=== PATIENT | male | born 1965 | race Caucasian/White ===

== ENCOUNTER 2016-04-24 16:17 | Emergency (ER) | payer SELFPAY ==
[~2016-04-24] VITALS: Wt 80.0 kg
[2016-04-24 16:36] VITALS: Wt 80.0 kg
[2016-04-24] MEDS ORDERED: METF1000 PO (17:45)
[2016-04-24] MEDS ORDERED: METO-429 PO (17:45)
[2016-04-24] MEDS ORDERED: HYDROmorphONE 1 MG/ML SYG IV STA (18:04)
[2016-04-24] MEDS ORDERED: ONDANSETRON 4 MG INJ IV STA (18:04)
[2016-04-24] MEDS ORDERED: LIDOCAINE/MYLANTA 40 ML BTL PO STA (18:04)
[2016-04-24] MEDS ORDERED: SOD CHLORIDE 0.9% 1,000 ML IV STA (18:04)
[2016-04-24 18:24] LABS: ADD SCAN DIFF NO
[2016-04-24 18:27] LABS: BASOPHILS % 0.4 % (0.0-2.0); EOSINOPHILS # 0.2 10^3/ul (0.0-0.5); EOSINOPHILS % 2.6 % (0.0-7.0); HEMATOCRIT 39.6 % (42.0-52.0); HEMOGLOBIN 13.7 g/dl (14.0-18.0); LYMPHOCYTES % 41.8 % (15.0-51.0); MEAN CORPUSCULAR HEMOGLOBIN 27.8 pg (29.0-33.0); MEAN CORPUSCULAR HGB CONC 34.6 g/dl (32.0-37.0); MEAN CORPUSCULAR VOLUME 80.3 fl (82.0-101.0); MEAN PLATELET VOLUME 10.6 fl (7.4-10.4); MONOCYTE # 0.6 10^3/ul (0.3-0.9); MONOCYTES % 8.3 % (0.0-11.0); NEUTROPHIL # 3.4 10^3/ul (1.6-7.5); NEUTROPHILS % 46.6 % (39.0-77.0); PLATELET COUNT 215 10^3/UL (140-415); RED BLOOD COUNT 4.93 10^6/ul (4.70-6.10); RED CELL DISTRIBUTION WIDTH 12.5 % (11.5-14.5); WHITE BLOOD COUNT 7.2 10^3/ul (4.8-10.8)
[2016-04-24 18:34] LABS: POTASSIUM 4.4 mmol/L (3.5-5.1)
[2016-04-24 18:36] LABS: BILIRUBIN,INDIRECT 0.1 mg/dl (0-1.1); BILIRUBIN,TOTAL 0.1 mg/dl (0.2-1.3); CREATININE 0.81 mg/dl (0.61-1.24)
[2016-04-24 18:37] LABS: ALBUMIN/GLOBULIN RATIO 1.6; CALCIUM 10.2 mg/dl (8.4-10.2); TOTAL PROTEIN 6.5 g/dl (6.1-8.1)
[2016-04-24 18:41] LABS: ADD UMIC YES; URINE BILIRUBIN (Dip) NEGATIVE (NEGATIVE); URINE BLOOD (Dip) TRACE (NEGATIVE); URINE COLOR LT. YELLOW (YELLOW); URINE GLUCOSE (Dip) NEGATIVE (NEGATIVE); URINE KETONES (Dip) NEGATIVE (NEGATIVE); URINE LEUKOCYTE ESTERASE (Dip) NEGATIVE (NEGATIVE); URINE NITRITE (Dip) NEGATIVE (NEGATIVE); URINE TOTAL PROTEIN (Dip) TRACE (NEGATIVE); URINE UROBILINOGEN (Dip) 0.2 E.U./dL (0.1-1.0)
[2016-04-24 18:59] LABS: URINE RBCS 0-2 /HPF (0)
[2016-04-24] MEDS ORDERED: SOD CHLORIDE 0.9% 100 ML ONE (19:22)
[2016-04-24] MEDS ORDERED: IOHEXOL 300MG/ML 150 ML BTL ONE (19:23)
--- NOTE | 2016-04-24 20:06 | RADRPT ---
PROCEDURE: CT Abdomen and Pelvis with contrast. CLINICAL INDICATION: Left lower quadrant abdominal pain. TECHNIQUE: Multiple contiguous axial CT images of the abdomen and pelvis were obtained following t he administration of 90 cc of Omnipaque-300. Coronal and sagittal reconstructions were also perform ed. CTDIvol (mGy): 15.28; Total Exam DLP (mGy-cm): 990.01. One or more of the following dose reduction techniques were utilized: - Automated exposure control. - Adjustment of the mA and/or kV according to patient size. - Use of iterative reconstruction technique. COMPARISON: None. FINDINGS: Limited imaging of the lower thorax demonstrates cardiomegaly with left ventricular hypertrophy. The liver and spleen are homogeneous in enhancement. The gallbladder, pancreas and adrenal glands a re unremarkable. The kidneys are symmetric in size and enhancement. There is no hydronephrosis or abnormal perinephr ic inflammation. There are no ureteral stones. The abdominal aorta is normal in caliber. There is no periaortic / retroperitoneal lymphadenopathy. The stomach and small and large intestines are unremarkable. The appendix is normal. There are no focal inflammatory changes of the mesentery. There is no mesenteric lymphadenopathy. There is no a scites. The bladder, prostate and seminal vesicles are unremarkable. There is no free pelvic fluid. There i s no pelvic sidewall or inguinal lymphadenopathy. Skeletal structures are unremarkable. Body wall soft tissues are unremarkable. IMPRESSION: No evidence of abdominopelvic mass, lymphadenopathy or acute inflammatory pathology. Cardiomegaly with left ventricular hypertrophy. Consider follow up with and further characterizatio n with echocardiography to evaluate left ventricular morphology and function. RPTAT: HLST .Leticia Russell MD, Date Time Electronically viewed and signed by .Leticia Russell MD, on 04/24/2016 20:05 .T/
[2016-04-24 20:13] VITALS: BP 191/87; PULSE 65; RESP 17
[2016-04-24] MEDS ORDERED: TRAM50TA2 PO (20:18)
[2016-04-24] MEDS ORDERED: POLY17PO6 PO (20:18)
[2016-04-24] MEDS ORDERED: ONDA4TAB14 PO (20:18)
[2016-04-24] MEDS ORDERED: OLME20TA20 PO (20:19)
--- NOTE | 2016-04-24 20:23 | ERD ---
ER Documentation Chief Complaint Date/Time DATE: 04/24/16 TIME: 20:21 Chief Complaint LEFT SIDE ABD PAIN SINCE YESTERDAY NAUSEA VOMITING CONSIPTATED WITH MENDOZA HPI This is a 51-year-old male complains of left lower quadrant pain for the past 2 days with constipation. The patient states that he has got chronic constipation that over the past 4 days he is only past 2 small pellets of stool. He also says he has some mild epigastric tenderness with nausea vomiting is nonbilious and nonbloody. He states the pain is crampy and nonradiating. He also complains of a dull headache but no fever no chest pain or shortness of breath no recent melena or blood in his stool. No anal or rectal pain. ROS All systems reviewed and are negative except as per history of present illness. Medications Home Meds Active Scripts Olmesartan Medoxomil (Benicar) 20 Mg Tablet, 20 MG PO DAILY, #30 TAB Prov:ROSAURA ADRIAN DO 04/24/16 Tramadol HCl (Tramadol HCl) 50 Mg Tablet, 50 MG PO Q6, #20 TAB Prov:ROSAURA ADRIAN DO 04/24/16 Ondansetron (Ondansetron Odt) 4 Mg Tab.rapdis, 4 MG PO Q6H Y for NAUSEA AND/OR VOMITING, #10 TAB Prov:ROSAURA ADRIAN DO 04/24/16 Polyethylene Glycol* (Miralax*) 17 Gm Powd.pack, 17 GM PO DAILY, #12 Prov:ROSAURA ADRIAN DO 04/24/16 Reported Medications Metformin Hcl* (Metformin Hcl*) 1,000 Mg Tablet, 1000 MG PO WITH BREAKFAST DINNE , #30 TAB 04/24/16 Metoprolol Tartrate* (Lopressor*) 50 Mg Tab, 50 MG PO BID, #60 TAB 04/24/16 Allergies Allergies: Coded Allergies: No Known Allergy (Unverified , 04/24/16) PMhx/Soc Medical and Surgical Hx: pt denies Surgical Hx Hx Cardiac Disorders: Yes (HTN) Hx Miscellaneous Medical Probl: Yes (DM) Smoking Status: Never smoker FmHx Family History: No coronary disease Physical Exam Vitals Vital Signs Date Time Temp Pulse Resp B/P Pulse Ox O2 Delivery O2 Flow Rate FiO2 2/23/17 20:13 65 17 191/87 99 Room Air 04/24/16 16:36 98.9 73 20 227/107 100 Physical Exam Const: Well-developed, well-nourished Head: Atraumatic, normocephalic Eyes: Normal Conjunctiva, PERRLA, EOMI, normal sclera, no nystagmus ENT: Normal External Ears, Nose and Mouth, moist mucus membranes. Neck: Full range of motion. No meningismus, no lymphadenopathy. Resp: Clear to auscultation bilaterally, no wheezing, rhonchi, rales Cardio: Regular rate and rhythm, no murmurs, S1 S2 present Abd: Soft, mild left lower quadrant tenderness with mild epigastric tenderness no rebound, non distended. Normal bowel sounds, no guarding or rebound, no pulsitile abdominal masses or bruits Skin: No petechiae or rashes, no ecchymosis , no maculopapular rash Back: No midline or flank tenderness Ext: No cyanosis, or edema, FROM x 4, normal inspection, neurovascularly intact x 4 Neur: Awake and alert, STR 5/5 x 4, sensation intact x 4, no focal findings, cerebellum intact Psych: Normal Mood and Affect Result Diagram: 04/24/16180904/24/161809 Results 24 hrs Laboratory Tests Test 04/24/16 18:10 Alanine Aminotransferase (ALT/SGPT) 22IU/L Albumin 4.0g/dl Albumin/Globulin Ratio 1.60 Alkaline Phosphatase 69IU/L Anion Gap 15 Aspartate Amino Transf (AST/SGOT) 16IU/L Basophils # 0.010^3/ul Basophils % 0.4% Blood Urea Nitrogen 14mg/dl Calcium Level 10.2mg/dl Carbon Dioxide Level 30mmol/L Chloride Level 102mmol/L Creatinine 0.81mg/dl Direct Bilirubin 0.00mg/dl Eosinophils # 0.210^3/ul Eosinophils % 2.6% Globulin 2.50g/dl Glucose Level 150mg/dl Hematocrit 39.6% Hemoglobin 13.7g/dl Indirect Bilirubin 0.1mg/dl Lipase 118U/L Lymphocytes # 3.010^3/ul Lymphocytes % 41.8% Mean Corpuscular Hemoglobin 27.8pg Mean Corpuscular Hemoglobin Concent 34.6g/dl Mean Corpuscular Volume 80.3fl Mean Platelet Volume 10.6fl Monocytes # 0.610^3/ul Monocytes % 8.3% Neutrophils # 3.410^3/ul Neutrophils % 46.6% Nucleated Red Blood Cells # 0.010^3/ul Nucleated Red Blood Cells % 0.0/100WBC Platelet Count 93118^3/UL Potassium Level 4.4mmol/L Red Blood Count 4.9310^6/ul Red Cell Distribution Width 12.5% Sodium Level 143mmol/L Total Bilirubin 0.1mg/dl Total Protein 6.5g/dl Urine Bilirubin NEGATIVE Urine Clarity CLEAR Urine Color LT. YELLOW Urine Glucose NEGATIVE% Urine Hemoglobin TRACE Urine Ketones NEGATIVE Urine Leukocyte Esterase NEGATIVE Urine Microscopic RBC 0-2/HPF Urine Microscopic WBC NONE SEEN/HPF Urine Nitrite NEGATIVE Urine Specific [place] 1.010 Urine Total Protein TRACE Urine Urobilinogen 0.2 E.U./dL Urine pH 5.0 White Blood Count 7.210^3/ul Current Medications Medications (Trade) Dose Ordered Sig/Sandro Route PRN Reason Start Time Stop Time Status Last Admin Dose Admin Sodium Chloride (NS) 1,000 ml @ 1,000 mls/hr Q1H STAT IV 04/24/16 18:04 04/24/16 19:03 DC 04/24/16 18:14 Hydromorphone HCl (Dilaudid) 1 mg ONCE STAT IV 04/24/16 18:04 04/24/16 18:06 DC 04/24/16 18:13 Ondansetron HCl (Zofran Inj) 4 mg ONCE STAT IV 04/24/16 18:04 04/24/16 18:06 DC 04/24/16 18:13 Miscellaneous Medication (Gi Cocktail (2)) 40 ml ONCE STAT PO 04/24/16 18:04 04/24/16 18:06 DC 04/24/16 18:13 IV Flush 10 ml 10 ml STK-MED ONCE .ROUTE 04/24/16 19:22 04/24/16 19:23 DC 04/24/16 19:33 Sodium Chloride (NS) 100 ml @ ud STK-MED ONCE .ROUTE 04/24/16 19:22 04/24/16 19:23 DC 04/24/16 19:33 Iohexol (Omnipaque 300mg/ ml) 150 ml STK-MED ONCE .ROUTE 04/24/16 19:23 04/24/16 19:24 DC 04/24/16 19:33 Procedures/MDM PROCEDURE: CT Abdomen and Pelvis with contrast. CLINICAL INDICATION: Left lower quadrant abdominal pain. TECHNIQUE: Multiple contiguous axial CT images of the abdomen and pelvis were obtained following the administration of 90 cc of Omnipaque-300. Coronal and sagittal reconstructions were also performed. CTDIvol (mGy): 15.28; Total Exam DLP (mGy-cm): 990.01. One or more of the following dose reduction techniques were utilized: - Automated exposure control. - Adjustment of the mA and/or kV according to patient size. - Use of iterative reconstruction technique. COMPARISON: None. FINDINGS: Limited imaging of the lower thorax demonstrates cardiomegaly with left ventricular hypertrophy. The liver and spleen are homogeneous in enhancement. The gallbladder, pancreas and adrenal glands are unremarkable. The kidneys are symmetric in size and enhancement. There is no hydronephrosis or abnormal perinephric inflammation. There are no ureteral stones. The abdominal aorta is normal in caliber. There is no periaortic / retroperitoneal lymphadenopathy. The stomach and small and large intestines are unremarkable. The appendix is normal. There are no focal inflammatory changes of the mesentery. There is no mesenteric lymphadenopathy. There is no ascites. The bladder, prostate and seminal vesicles are unremarkable. There is no free pelvic fluid. There is no pelvic sidewall or inguinal lymphadenopathy. Skeletal structures are unremarkable. Body wall soft tissues are unremarkable. IMPRESSION: No evidence of abdominopelvic mass, lymphadenopathy or acute inflammatory pathology. Cardiomegaly with left ventricular hypertrophy. Consider follow up with and further characterization with echocardiography to evaluate left ventricular morphology and function. RPTAT: HLST .Leticia Russell MD, MD Date Time Electronically viewed and signed by .Leticia Russell MD, on 04/24/2016 20:05 .T/ CC: ROSAURA ADRIAN DO Patient is no pathology on the blood work or CAT scan. He could have a virus/ causing his nausea vomiting. He also has some constipation. I will provide him with some MiraLAX, further blood pressure control, Zofran and Ultram Departure Diagnosis: Primary Impression: Constipation Constipation type: unspecified constipation type Qualified Code: K59.00 - Constipation, unspecified constipation type Additional Impressions: Abdominal pain Abdominal location: left lower quadrant Qualified Code: R10.32 - Left lower quadrant pain Vomiting Vomiting type: unspecified Vomiting Intractability: non-intractable Nausea presence: with nausea Qualified Code: R11.2 - Non-intractable vomiting with nausea, unspecified vomiting type Condition: Stable Patient Instructions: Abdominal Pain, Constipation (Adult), Vomiting (6Y-Adult) ROSAURA ADRIAN DO Apr 24, 2016 20:23
== END 2016-04-24 20:36 | disposition home or self-care (01) ==
LOC: E/R 16:17
DX: K59.00 Constipation, unspecified (principal); R11.2 Nausea with vomiting, unspecified; I10 Essential (primary) hypertension; E11.9 Type 2 diabetes mellitus without complications; Z79.84 Long term (current) use of oral hypoglycemic drugs
CPT/HCPCS: 36415; 74177; 80053; 81001; 83690; 85025; 96374; 96375; 99285; J1170; J2405; J7030; Q9967; 81003

== ENCOUNTER 2016-08-14 13:25 | Day surgery (SDC) | payer MEDICAID, OTHER ==
[~2016-08-14] VITALS: Ht 157.5 cm; Wt 70.8 kg
[~2016-08-14 13:25] MED LIST: METF1000 PO; METO-429 PO; OLME20TA20 PO; ONDA4TAB14 PO; POLY17PO6 PO; TRAM50TA2 PO
[2016-08-14] MEDS ORDERED: linzess (14:54)
[2016-08-14] MEDS ORDERED: dexilant (14:54)
[2016-08-14 15:01] VITALS: Ht 157.5 cm; Wt 70.8 kg
[2016-08-14 16:12] VITALS: BP 157/90; PULSE 70; RESP 15
[2016-08-14] MEDS ORDERED: MIDAZOLAM 1 MG/ML 2 ML INJ ONE ×2 (16:48)
[2016-08-14] MEDS ORDERED: FENTAnyl 50 MCG/ML VIAL ONE (16:48)
--- NOTE | 2016-08-14 17:09 | GILP ---
DATE OF PROCEDURE: 08/14/2016 NAME OF PROCEDURES: 1. Esophagogastroduodenoscopy and biopsy. 2. Colonoscopy and biopsy. SURGEON: Scott Wood MD PREOPERATIVE DIAGNOSES: 1. Abdominal pain. 2. Chronic heartburn. 3. Positive occult blood in stool. POSTOPERATIVE DIAGNOSES: 1. Gastroesophageal reflux disease. 2. Gastritis with erosions. 3. Gastric mucosal biopsies were taken for Helicobacter pylori test. 4. Colonoscopy all the way to the cecum. 5. Two small colon polyps were removed using the biopsy forceps. 6. Internal hemorrhoids. INDICATION FOR THE PROCEDURE: Mr. Jose David Jackson is a 55-year-old male patient who had upper abdominal pain and chronic heartburn not responding to therapy. He was also noted to have positive occult bl ood in stool. The patient was scheduled for endoscopy and colonoscopy for further evaluation. The procedures and possible complications were well explained to the patient, he understood and cons ented to the procedure. DESCRIPTION OF PROCEDURE: Under the influence of fentanyl and Versed, the gastroscope was carefully introduced into the esophagus and under direct vision, it was advanced to the stomach and through t he pylorus into the duodenal bulb and descending duodenum. FINDINGS: ESOPHAGUS: The patient had gastroesophageal reflux disease. STOMACH: He had gastritis with erosions. Gastric mucosal biopsies were taken for H. pylori test. DUODENUM: Normal. The colonoscope was carefully introduced in the rectum and under direct vision, it was advanced all the way to the cecum. FINDINGS: The patient had 2 small colon polyps and they were removed using the biopsy forceps. The patient was noted to have internal hemorrhoids. He tolerated the procedures very well and there was no complication from the procedures. At the end of the procedures, he was awake with stable vital signs and he was discharged home to the care of h is family. IMPRESSION: 1. Gastroesophageal reflux disease. 2. Gastritis with erosions. 3. Gastric mucosal biopsies were taken for Helicobacter pylori test. 4. Colonoscopy all the way to the cecum. 5. Two small polyps were removed using the biopsy forceps. 6. Internal hemorrhoids. PLAN: 1. Continue Dexilant and Linzess. 2. Await histopathology reports. Dictated By: SCOTT ORDOÑEZ/MUSA Conf#: [id number] DID#: [id number]
[2016-08-14 17:10] VITALS: BP 148/96; PULSE 76; RESP 12
== END 2016-08-14 17:40 | disposition home or self-care (01) ==
LOC: GIL 13:25
PROVIDERS: ATTEND Internal Medicine Gastroenterology
DX: K92.1 Melena (principal); K21.9 Gastro-esophageal reflux disease without esophagitis; K29.60 Other gastritis without bleeding; K63.5 Polyp of colon; K64.8 Other hemorrhoids; I10 Essential (primary) hypertension; E11.9 Type 2 diabetes mellitus without complications
CPT/HCPCS: 43239; 45380; 87081; 88305; J2250; J3010; Z7610